=== PATIENT | female | born 2000 | race Hispanic/Latino ===

== ENCOUNTER 2022-01-08 12:09 | Outpatient (CLI) | payer MEDICAID ==
[2022-01-08 12:55] VITALS: BP 125/70
--- NOTE | 2022-01-08 16:19 | Ultrasound Report ---
Limited OB Ultrasound Biophysical profile HISTORY: labor. TECHNIQUE: Grayscale and color imaging performed. COMPARISON: None FINDINGS: Single viable intrauterine gestation with cephalic presentation. PEGGY is 8 cm. Placenta is a nterior. Heart rate is 139 bpm. On biophysical profile, the fetus received a score of 2 out of 2 for breathing, movement, posture/ton e, and PEGGY. Total score was 8 out of 8. IMPRESSION: 1. Single viable intrauterine gestation as above. 2. Normal biophysical profile. Signer Name: Paul Kolb MD Signed: 01/08/2022 4:15 PM Workstation Name: [id number]
== END 2022-01-08 15:17 | disposition home or self-care (01) ==
LOC: TRG 12:09 → APU 12:10 → TRG 15:17
PROVIDERS: ATTEND Obstetrics & Gynecology
DX: Z34.93 Encounter for supervision of normal pregnancy, unspecified, third trimester (principal); Z3A.35 35 weeks gestation of pregnancy
CPT/HCPCS: 59025; 76815; 76819

== ENCOUNTER 2022-02-01 06:46 | Inpatient (IN) | payer MEDICAID ==
--- NOTE | 2022-02-01 12:44 | History and Physical Report ---
History of Present Illness Date of examination: 02/01/22 Date of admission: 02/01/22 Chief complaint: Vag bleeding and contractions. History of present illness: Primigravida, DANE 02/06/22, 39+2 wks. Past History Past Medical History: no pertinent history Past Surgical History: no surgical history - Obstetrical History Expected Date of Delivery: 02/06/22 Actual Gestation: 39 Week(s) 2 Day(s) : 1 Para: 0 Medications and Allergies Allergies Allergy/AdvReac Type Severity Reaction Status Date / Time No Known Allergies Allergy Unverified 01/08/22 12:56 Review of Systems All systems: negative Gastrointestinal: no abdominal pain Genitourinary: vaginal bleeding, contractions, no leakage of fluid - Vital Signs Vital signs: Vital Signs Pulse BP 74 117/65 02/01/22 07:18 02/01/22 07:18 Temp Pulse Resp BP Pulse Ox 98.9 F 92 H 18 117/65 99 02/01/22 07:22 02/01/22 12:32 02/01/22 07:22 02/01/22 07:22 02/01/22 12:32 - Physical Exam Breasts: Positive: deferred Cardiovascular: Normal S1, Normal S2 Lungs: Positive: Normal air movement Abdomen: Positive: normal appearance, soft, normal bowel sounds. Negative: tenderness Genitourinary (Female): Positive: normal external genitalia, normal perenium Vulva: both: normal Vagina: Positive: normal moisture. Negative: discharge Cervix: Negative: lesion, discharge Uterus: Positive: enlarged, normal contour Anus/Rectum: Positive: normal perianal skin, heme negative. Negative: rectal mass, hemorrhoids Extremities: Positive: normal Deep Tendon Reflex Grade: Normal +2 - Obstetrical FHR: auscultation normal, category 1 Cervical Dilatation: 2 Cervical Effacement Percentage: 80 station: 0 Uterine Contraction Pattern: Irregular Results All other labs normal. Assessment and Plan - Patient Problems (1) with 39 completed weeks gestation Current Visit: Yes Status: Acute (2) Vaginal bleeding during , antepartum Current Visit: Yes Status: Acute Plan to address problem: For observation, U/S while being readied for delivery.
[2022-02-01] MEDS ORDERED: LACTATED RINGERS 1,000 ML ONE (13:17)
--- NOTE | 2022-02-01 13:26 | Ultrasound Report ---
ULTRASOUND OBSTETRIC LIMITED INDICATION / CLINICAL INFORMATION: Vaginal bleeding. Evaluate for placental abruption/placenta previa. COMPARISON: OB ultrasound performed on 01/08/2022. FINDINGS: A single live intrauterine is seen in cephalic presentation with a heart rate of 125 bpm. T he placenta is located anteriorly/right lateral without sonographic evidence of abruption or previa. IMPRESSION: No sonographic evidence of placental abruption/previa or other acute findings. Signer Name: Arturo Li MD Signed: 02/01/2022 1:22 PM Workstation Name: [id number]
[2022-02-01 16:57] LABS: Hematocrit 34.6 % (30.3-42.9); Hemoglobin 11.5 gm/dl (10.1-14.3); Mean Corpuscular HGB Conc 33 % (30-34); Mean Corpuscular Volume 94 fl (79-97); Platelet Count 162 K/mm3 (140-440); Red Blood Count 3.66 M/mm3 (3.65-5.03); Red Cell Distribution Width 13.9 % (13.2-15.2)
[2022-02-01] MEDS ORDERED: BUTORPHANOL 2 MG/1 ML INJ IV PRN (22:52)
[2022-02-01] MEDS ORDERED: OXYTOCIN DRIP 30 UNITS/500 ML BAG IV SCH (23:00)
[2022-02-01] MEDS: LACTATED RINGERS 1,000 ML IV SCH (23:36)
[2022-02-02] MEDS: BUTORPHANOL 2 MG/1 ML INJ IV PRN ×2 (03:46→05:52)
[2022-02-02] MEDS: LACTATED RINGERS 1,000 ML IV SCH (07:23)
[2022-02-02] MEDS ORDERED: ePHEDrine SULFATE 50 MG/1 ML INJ IV PRN (09:26)
[2022-02-02] MEDS ORDERED: NALOXONE 2 MG/2 ML INJ IV PRN (09:26)
--- NOTE | 2022-02-02 09:32 | Anesthesia Consultation ---
Anesthesia Consult and Med Hx Date of service: 02/02/22 - Airway Anesthetic Teeth Evaluation: Poor ROM Head & Neck: Adequate Mental/Hyoid Distance: Adequate Mallampati Class: Class II Intubation Access Assessment: Probably Good - Pulmonary Exam CTA: Yes - Cardiac Exam Cardiac Exam: RRR - Pre-Operative Health Status ASA Pre-Surgery Classification: ASA2 Proposed Anesthetic Plan: Epidural - Pulmonary Hx Asthma: No COPD: No Hx Pneumonia: No - Cardiovascular System Hx Hypertension: No - Central Nervous System Hx Seizures: No Hx Psychiatric Problems: No - Endocrine Hx Renal Disease: No Hx End Stage Renal Disease: No Hx Hypothyroidism: No Hx Hyperthyroidism: No - Hematic Hx Anemia: No Hx Sickle Cell Disease: No - Other Systems Hx Alcohol Use: No
[2022-02-02] MEDS ORDERED: fentaNYL-BUPIV 2 MCG/ML-0.125% 200 MCG/100 ML BAG EPIDURAL SCH (10:00)
[2022-02-02] MEDS ORDERED: MINERAL OIL 30 ML ORAL LIQD ONE (13:18)
[2022-02-02] MEDS ORDERED: miSOPROStol 200 MCG TAB ONE (13:19)
[2022-02-02] MEDS ORDERED: diphenhydrAMINE 25 MG CAP PO PRN (14:15)
[2022-02-02] MEDS ORDERED: ACETAMINOPHEN 325 MG TAB PO PRN (14:15)
[2022-02-02] MEDS ORDERED: LANOLIN/ZINC/DIMETHICONE (LANSINOH) 7 GM TP PRN (14:15)
[2022-02-02] MEDS ORDERED: WITCH HAZEL/ GLYCERIN PAD TP PRN (14:15)
[2022-02-02] MEDS ORDERED: KETOROLAC 30 MG/1 ML INJ IV PRN (14:15)
[2022-02-02] MEDS ORDERED: PROMETHAZINE 25 MG RECT SUPP PR PRN (14:15)
[2022-02-02] MEDS ORDERED: HYDROcodone/ACETAMINOPHEN 5-325 MG TAB PO PRN (14:15)
[2022-02-02] MEDS ORDERED: ONDANSETRON 4 MG/2 ML INJ IV PRN (14:15)
[2022-02-02] MEDS ORDERED: MAGNESIUM HYDROXIDE (MOM) ORAL LIQD UDC PO PRN (14:15)
[2022-02-02] MEDS ORDERED: PROMETHAZINE 25 MG TAB PO PRN (14:15)
--- NOTE | 2022-02-02 14:22 | Event Note ---
Date: 02/02/22 Mother and fetus stable. Cervix paper thin, 6cm dilated, station 0, ARM done with clear fluids.
--- NOTE | 2022-02-02 14:24 | Procedure Note ---
OB Delivery Note - Delivery Date of Delivery: 02/02/22 Surgeon: JENNY PHAM Estimated blood loss: 300cc - Vaginal Delivery presentation: vertex Delivery position: OA Intrapartum events: none Delivery induction: none Delivery augmentation: rupture of membranes, pitocin Delivery monitor: external FHT, external uterine Route of delivery: Delivery placenta: spontaneous Delivery cord: 3 umbilical vessels Delivery laceration: none Anesthesia: epidural - A at 1 minute: 8 at 5 minutes: 9 Infant Gender: Female
--- NOTE | 2022-02-02 18:45 | Post Anesthesia Evaluation ---
- Post Anesthesia Evaluation Patient Participated: Yes Airway Patent: Yes Stable Respiratory Function: Yes Nausea/Vomiting: No Temp > 96.8F: Yes Pain Manageable: Yes Adequeate Hydration: Yes Anesthesia Complications: No Block Receding Appropriately: Yes Patient on Ventilator: No
[2022-02-02] MEDS: IBUPROFEN 600 MG TAB PO SCH (22:48)
[2022-02-03 02:31] LABS: Hematocrit 32.7 % (30.3-42.9); Hemoglobin 10.9 gm/dl (10.1-14.3)
[2022-02-03] MEDS: IBUPROFEN 600 MG TAB PO SCH (04:52)
[2022-02-03] MEDS ORDERED: PRENATAL VIT27-FE FUMARATE-FOLIC ACID VIT TAB PO SCH (10:00)
[2022-02-03 12:25] VITALS: BP 108/79
--- NOTE | 2022-02-03 15:08 | Progress Note ---
Assessment and Plan - Patient Problems (1) with 39 completed weeks gestation Current Visit: Yes Status: Resolved (2) Vaginal bleeding during , antepartum Current Visit: Yes Status: Resolved (3) Status post vaginal delivery Current Visit: Yes Status: Acute Plan to address problem: Doing great, under observation. Subjective - Subjective Date of service: 02/03/22 Principal diagnosis: Status post vaginal delivery day 1. Interval history: Primigravida, DANE 02/06/22, 39+2 wks. 02/02/22. Patient reports: appetite normal, voiding normally, pain well controlled, ambulating normally : doing well Objective - Vital Signs Latest vital signs: Vital Signs Temp Pulse Resp BP BP Pulse Ox Pulse Ox 02/03/22 11:21 98.1 F 70 18 108/79 97 02/03/22 08:15 98 02/03/22 07:32 98.6 F 63 18 99/57 98 02/03/22 01:06 98.9 F 68 18 115/68 94 02/02/22 22:05 100 02/02/22 21:21 97.3 F L 82 18 99/64 93 02/02/22 16:45 97.1 F L 96 H 17 109/65 100 100 02/02/22 16:39 97.9 F 101 H 17 109/65 100 02/02/22 15:15 94 H 100 02/02/22 15:10 85 100 02/02/22 15:05 92 H 99 Intake and Output 02/02/22 02/03/22 02/03/22 23:59 07:59 15:59 Intake Total 360 480 240 Output Total 750 Balance -390 480 240 Intake: Oral 480 240 Intake, Free Water 360 Output: Urine 750 Void 750 Other: Total, Intake Amount 240 240 Total, Output Amount 250 # Voids Void 1 1 1 - Exam Breasts: Present: deferred Lungs: Present: Normal air movement Abdomen: Present: normal appearance, soft Uterus: Present: normal, firm Extremities: Present: normal Deep Tendon Reflex Grade: Normal +2
== END 2022-02-03 18:45 | disposition home or self-care (01) | DRG 775 ==
LOC: TRG 06:46 → APU 06:47 → LD 22:41 → TRG 02-02 14:24 → LD 02-02 14:26 → OB 02-02 16:56
PROVIDERS: ADMIT Obstetrics & Gynecology; ATTEND Obstetrics & Gynecology
PROC: 10E0XZZ Delivery of Products of Conception, External Approach (ICD-10-PCS; principal; 2022-02-02)
PROC: 3E0R3BZ Introduction of Anesthetic Agent into Spinal Canal, Percutaneous Approach (ICD-10-PCS; 2022-02-02)
PROC: 00HU33Z Insertion of Infusion Device into Spinal Canal, Percutaneous Approach (ICD-10-PCS; 2022-02-02)
PROC: 10907ZC Drainage of Amniotic Fluid, Therapeutic from Products of Conception, Via Natural or Artificial Opening (ICD-10-PCS; 2022-02-02)
DX: O80 Encounter for full-term uncomplicated delivery (principal); Z3A.39 39 weeks gestation of pregnancy; Z37.0 Single live birth
CPT/HCPCS: 36415; 59020; 59025; 76815; 85014; 85018; 85027; 86592; 86850; 86900; 86901; 96360; G0378; J3490; J0595; J2590; J7120